=== PATIENT | female | born 1955 | race African-American/Black ===

== ENCOUNTER 2019-07-28 07:37 | Emergency (ER) | payer OTHER ==
[~2019-07-28] VITALS: Ht 152.4 cm; Wt 82.6 kg
[2019-07-28] MEDS ORDERED: TYLENOL325 MG (08:23)
[2019-07-28] MEDS ORDERED: ORPHENADRINE C100 MG PO (11:48)
[2019-07-28] MEDS ORDERED: KETO10TA2 PO (11:48)
== END 2019-07-28 11:38 ==
LOC: ER 07:37
DX: M79.604 Pain in right leg (principal); M25.561 Pain in right knee